=== PATIENT | female | born 1965 | race Caucasian/White ===

== ENCOUNTER 2020-07-24 13:34 | Emergency (ER) | payer SELFPAY ==
[2020-07-24 13:56] VITALS: BP 119/86; PULSE 62; PULSE 73; RESP 16; TEMP 36.7; O2SAT 97; O2SAT 98; BMI 29.9
--- NOTE | 2020-07-24 14:00 | XR_ITS ---
EXAMINATION: XR SHOULDER, RIGHT CLINICAL INFORMATION: Pain after fall COMPARISON: None TECHNIQUE: Two views of the right shoulder. FINDINGS: Comminuted, nondisplaced fracture of the humeral head/neck. Humeral head demonstrates acceptable articulation with the glenoid fossa on these 2 views. There are moderate hypertrophic changes of the acromioclavicular joint. Visualized ribs and lung parenchyma are unremarkable. XR/XR shoulder RT min 2V IMPRESSION: Comminuted, nondisplaced fracture of the humeral head/neck.
--- NOTE | 2020-07-24 14:12 | ED.EXTPRO ---
HPI - Extremity Problem General Chief complaint: Extremity Injury, Upper Stated complaint: fall, arm pain Time Seen by Provider: 07/24/20 14:00 Source: EMS Mode of arrival: EMS Limitations: no limitations History of Present Illness HPI Narrative: States she was taking her groceries out and [facility] and chief fell and hit right shoulder on the ground. Having right shoulder pain. No head neck or back pain MD Complaint: extremity pain Onset (ago): hour(s) Pain Consistency: constant Location: right Severity scale (1-10): 5 Quality: aching Radiation: none Relieving factors: immobilization Exacerbating factors: range of motion Associated symptoms: denies other symptoms Related Data Previous Rx's Medication Instructions Recorded ibuprofen 800 mg PO Q8H PRN #30 tab 07/24/20 oxycodone-acetaminophen [Percocet] 1 tab PO Q8H PRN #14 tab 07/24/20 Allergies Allergy/AdvReac Type Severity Reaction Status Date / Time No Known Allergies Allergy Unverified 06/13/20 14:39 Review of Systems Review of Systems: Constitutional: No Weight loss, No Fever, No Chills, No Night Sweats, No Fatigue, No Malaise ENT/Mouth: No Hearing loss, No Ear Pain, No Nasal Congestion, No Sinus Pain, No Hoarseness, No sore throat, No Rhinorrhea, No Swallowing Difficulty Eyes: No Eye Pain, No Swelling, No Redness, No Foreign Body, No Discharge, No Vision Changes Cardiovascular: No Chest Pain, No SOB, No Dyspnea on Exertion, No Orthopnea, No Edema, No Palpitations Respiratory: No Cough, No Sputum, No Wheezing, No Smoke Exposure, No Dyspnea Gastrointestinal: No Nausea, No Vomiting, No Diarrhea, No Constipation, No abdominal Pain, No Hematochezia, No Melena Genitourinary: no irregular bleeding, No Dysuria, No Urinary Frequency, No Hematuria, No Urinary Incontinence, No Urgency, No Flank Pain, No Urinary Flow Changes, No Hesitancy Musculoskeletal: noted in HPI+ r shoulder pain Skin: No Skin Lesions, No rash Neuro: No Weakness, No Numbness, No Paresthesias, No Loss of Consciousness, No Dizziness, No Headache Psych: No Anxiety/Panic, No Depression, No SI/HI/AH/VH, No Social Issues Heme/Lymph: No Bruising, No Bleeding,No Lymphadenopathy Endocrine: No Polyuria, No Polydipsia, No Temperature Intolerance Yes all other systems are reviewed and are negative [facility] Past Medical History Attestation statement: The following information was validated with the patient. Medical History (Updated 07/24/20 @ 15:54 by Gianni Khan NP) HTN (hypertension) Surgical History (Updated 07/24/20 @ 13:59 by Tamara Foy) H/O hand surgery Previous section Social History Social History Alcohol intake: never Smoking Status: Current every day smoker Use of substances other than those prescribed or required for medical reasons: No Advance Directives: No Advance Directives Information Provided: No Physical Exam Vital Signs: Vital Signs: Vital Signs Temp Pulse Resp BP Pulse Ox 07/24/20 13:56 98.1 F 73 16 119/86 97 Body Mass Index 29.9 reviewed Const: General: cooperative and healthy appearing; No acute distress or intoxicated appearing Nutritional Appearance: average body habitus Orientation/consciousness: patient oriented x3 HENMT: Head: Yes normal to inspection Ears: hearing grossly normal bilaterally Eyes: General: appearance normal, both eyes and all related structures Visual Neff: normal visual neff by confrontation Neck: Neck: Yes normal visual inspection and No tender Thyroid: Thyroid normal Chest: Chest palpation & inspection: normal inspection of the chest Resp: Effort & Inspection: normal respiratory effort Cardio: Jugular venous distension: no JVD GI: Inspection: Yes normal to inspection Percussion: Yes normal to percussion Auscultation: normal bowel sounds : General: Yes no CVA tenderness Back/Spine/Pelvis: Back: no CVA tenderness Skin: General skin exam: no rashes or lesions noted Neuro: General: patient oriented x3 Extrem: General: Yes normal to inspection Shoulder/upper arm images: 1. Pain with palp and movement no obvious deformities, laceration Course Course Course Narrative: AP mechanical fall resulting in comminuted, nondisplaced fracture of the humeral head/neck on right side. No other injury. Patient placed in a shoulder immobilizer case discussed with orthopedics they agree with this. Will follow up in office. Patient will be going home with pain management/return/follow-up instructions. Neurological intact. Consultations Consultation #1: Case discussed with orthopedics on-call via tiger text [employer] - recommendation shoulder mobilizer and office follow-up. 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 FINDINGS: Comminuted, nondisplaced fracture of the humeral head/neck. Humeral head demonstrates acceptable articulation with the glenoid fossa on these 2 views. There are moderate hypertrophic changes of the acromioclavicular joint. Visualized ribs and lung parenchyma are unremarkable. XR/XR shoulder RT min 2V IMPRESSION: Comminuted, nondisplaced fracture of the humeral head/neck. Dictated By:MARIELLE ABRAMS MD Signed By:<Electronically signed by MARIELLE ABRAMS MD in OV>07/24/20 1423 DD/ 1400 TD/TT: Telemarketing Fundraiser: PD Discharge Plan Discharge Clinical Impression: Fracture of humerus, Fall Patient Disposition: Home, Self-Care Instructions: Arm Fracture in Adults (ED), Fall Prevention (ED), Shoulder Immobilizer (ED) Additional Instructions: Please leave sling in place until you follow-up with orthopedics Home cares instructed Return if any concerns or symptoms otherwise call orthopedics tomorrow to follow-up the next 3-7 days Thank you Prescriptions: New ibuprofen 800 mg tablet 800 mg PO Q8H PRN (Reason: pain) Qty: 30 RF: 0 oxycodone-acetaminophen [Percocet] 5-325 mg tablet 1 tab PO Q8H PRN (Reason: pain) Qty: 14 RF: 0 Referrals: Elina Gamboa MD [Physician] - 1 week
[2020-07-24] MEDS: oxyCODONE HCl Immed Release 5 MG TABLET 10 MG PO ×2 (14:18→16:19)
--- NOTE | 2020-07-24 15:07 | PC.NURSE ---
[employer] renee and pt aware xray results, pt medicated with oxycodone as ordered, [employer] awaiting response from orthopedics re: poc
== END 2020-07-24 16:46 | disposition home or self-care (01) ==
PROVIDERS: Emergency Provider Emergency Medicine
DX: S42.354A Nondisplaced comminuted fracture of shaft of humerus, right arm, initial encounter for closed fracture (principal); M25.511 Pain in right shoulder; W01.198A Fall on same level from slipping, tripping and stumbling with subsequent striking against other object, initial encounter; Y93.01 Activity, walking, marching and hiking; Y92.009 Unspecified place in unspecified non-institutional (private) residence as the place of occurrence of the external cause; Y99.9 Unspecified external cause status; F17.200 Nicotine dependence, unspecified, uncomplicated; Z71.6 Tobacco abuse counseling
CPT/HCPCS: 73030; 99283

== ENCOUNTER 2024-03-01 12:00 | Emergency (ER) | payer MEDICAID, SELFPAY ==
--- NOTE | ~2024-03-01 | XR_ITS ---
EXAMINATION: XR LUMBOSACRAL SPINE CLINICAL INFORMATION: Left-sided low back pain radiating to the left leg COMPARISON: 04/07/2018 TECHNIQUE: 2 views of lumbar spine FINDINGS: When compared to the previous study there is mild progression of diffuse degenerative changes with narrowing of L1-L2, L4-L5. There is subchondral sclerosis and marginal spurring at the level of L2-L3. There is no spondylolysis or listhesis. Pedicles are preserved. There are 5 not ribs bearing vertebral bodies. XR/XR lumbar spine 2-3V IMPRESSION: Mild multilevel degenerative changes of lumbar spine.
[2024-03-01 12:11] VITALS: BP 193/112; PULSE 97; RESP 16; TEMP 36.6; O2SAT 98
--- NOTE | 2024-03-01 12:11 | ED_ITS ---
HPI - General Adult General Chief complaint: Extremity Problem Stated complaint: pain L side Time Seen by Provider: 03/01/24 12:35 Source: patient Mode of arrival: ambulatory Limitations: no limitations History of Present Illness ED Provider: Diana HALL HPI narrative: This is a 59-year-old female past medical history significant for hypertension presenting to the emergency department complaints of left-sided hip/buttocks pain that started on , atraumatic in nature, pain has been worsening ever since then. Patient reports she has never had hip pain in the past. Hip/buttock pain radiates down to left lower extremity. She describes it as ?shooting pain ?and rates it a greater than 10/10 on the pain scale. She has been taking Tylenol with little to no relief. She reports weight-bearing and movement makes it worse. She denies associated weakness, fevers, chills, numbness, tingling changes in urinary habits, bowel habits, chest pain, shortness of breath, abdominal pain, nausea and vomiting. No blunt trauma. Not on blood thinners. Ambulatory into the room without difficulty. NIH stroke scale 0 on arrival. Related Data Previous Rx's ?Medication ?Instructions ?Recorded ibuprofen 800 mg tablet 800 mg PO Q8H PRN pain #30 tabs 07/24/20 oxycodone-acetaminophen 5 mg-325 1 tab PO Q8H PRN pain #14 tabs 07/24/20 mg tablet (Percocet) cyclobenzaprine 10 mg tablet 10 mg PO BEDTIME PRN muscle spasm 03/01/24 #7 tabs ketorolac 10 mg tablet 10 mg PO TID PRN pain 5 days #15 03/01/24 tabs lidocaine 5 % topical patch 1 patch topical DAILY PRN pain #15 03/01/24 ea Allergies Allergy/AdvReac Type Severity Reaction Status Date / Time No Known Allergies Allergy Verified 03/01/24 12:13 Review of Systems Review of Systems: Constitutional : No Weight loss, No Fever, No Chills, ENT/Mouth : No Hearing loss, No Ear Pain, No Nasal Congestion, No Sinus Pain, No Hoarseness, No sore throat, No Rhinorrhea, No Swallowing Difficulty Cardiovascular : No Chest Pain, No SOB Respiratory : No Cough, No Dyspnea Gastrointestinal : No Nausea, No Vomiting, No Diarrhea, No abdominal Pain, No Hematochezia, No Melena Genitourinary : No Dysuria, No Urinary Frequency, No Hematuria, No Urinary Incontinence, Musculoskeletal : positive back pain Skin : No Skin Lesions, No rash Neuro : No Weakness, No Numbness, No Paresthesias, no loss of bowel or bladder incontinence, no saddle anesthesia Yes all other systems are reviewed and are negative REPLACED BY [facility] Past Medical History Attestation statement: The following information was validated with the patient. Source: old records reviewed and nursing notes reviewed Medical History HTN (hypertension) Surgical History H/O hand surgery Previous section Social History Social History Alcohol intake: never Advance Directives: No Advance Directives Information Provided: No Physical Exam ED Vital Signs: Vital Signs - 24 hr 03/01/24 12:11 03/01/24 14:22 Temperature 97.8 F 97.7 F Pulse Rate 97 68 Respiratory Rate 16 18 Blood Pressure 193/112 H 145/42 H Pulse Oximetry 98 97 Oxygen Delivery Method Room Air Room Air BMI result Body Mass Index 30.0 HTN likely due to pain Appearance: Alert.? Oriented X3.? No acute distress.? Head: Normocephalic, atraumatic, no step-offs or deformities Eyes: Pupils equal, round and reactive to light.? Neck: Normal inspection.? Neck supple.? CVS: Normal heart rate and rhythm.? Pulses normal.? Respiratory: No respiratory distress.? Breath sounds normal.? Abdomen: Soft and nontender.? Skin: Skin warm and dry.? Normal skin color.? Normal skin turgor.? Extremities: No lower extremity edema.? No calf ttp. 5/5 strength to bilateral upper and lower extremities + discomfort with palpation of left buttocks region/left lower lumbar paraspinous muscles. Patient ambulating with steady gait normal coordination. Full range of motion to hip, knee bilaterally. No saddle paresthesias. No midline pain to back Back: No midline tenderness, no C-spine tenderness, full range of motion, no CVA tenderness bilaterally Neuro: Oriented X 3.? No motor deficit.? No sensory deficit. CN 2-12 intact Course Course Course Narrative: This is a rapid medical exam performed by Lana Arauz NP: Additional HPI, ROS, PE not included below will be deferred to primary provider. Patient is a 59-year-old female presenting to the ED with complaint of left lower back pain radiating to left hip and down left leg since . Reports pain is exacerbating her anxiety. BP elevated in triage. Denies fevers, saddle anesthesia, bowel or bladder incontinence. Plan: xray Reevaluation(s) Reevaluation #1: X-ray of the lumbar spine mild multi level degenerative changes of lumbar spine. Will give Toradol, cyclobenzaprine for home as well as Lidoderm patches. I did give a 1 time dose of morphine here due to continued pain that is not completely resolved with Toradol Toradol improved pain however did not get rid of it completely. Patient is not driving home she has a ride home. Educated patient on diagnosis and treatment plan, answered all question, patient verbalizes understanding. At this time patient will be discharged home, advised to return with new or worsening symptoms. Educated on worrisome signs and symptoms and when to return. At this time I feel comfortable discharge home. Time: 14:57 Medications Administered Discontinued Medications Generic Name Dose Route Start Last Admin Trade Name Loren PRN Reason Stop Dose Admin Ketorolac Tromethamine 30 mg 03/01/24 13:03 03/01/24 13:18 Ketorolac Tromethamine 15 Mg/Ml Vial IM 03/01/24 13:04 30 mg ONCE ONE Administration Lidocaine 1 patch 03/01/24 13:03 03/01/24 13:18 Lidocaine 4 % Patch Adh..Patch TRANSDERMA 03/01/24 13:04 1 patch ONCE ONE Administration Protocol Morphine Sulfate 15 mg 03/01/24 14:22 03/01/24 14:35 Morphine Sulfate Immed Release 15 Mg Tablet PO 03/01/24 14:23 15 mg ONCE ONE Administration Medical Decision Making Medical Decision Making [facility] Narrative: 1321 59-year-old female presents with complaints of left lower back pain/buttocks pain with radiation to left lower extremity. Ambulatory into. And into department. Physical exam+ discomfort with palpation of left buttocks region/left lower lumbar paraspinous muscles. Patient ambulating with steady gait normal coordination. Full range of motion to hip, knee bilaterally. No saddle paresthesias. No midline pain to back History and physical exam concerning for lumbar radiculopathy versus sciatica versus lumbar paraspinous muscles spasms. Unlikely cauda equina, cord compression, fracture, dislocation. Other differentials include osteoarthritis versus bursitis. Unlikely septic joint Plan imaging, Toradol. Differential Diagnosis Differential Diagnoses: The differential diagnosis associated with the presentation includes History and physical exam concerning for lumbar radiculopathy versus sciatica versus lumbar paraspinous muscles spasms. Unlikely cauda equina, cord compression, fracture, dislocation. Other differentials include osteoarthritis versus bursitis. Unlikely septic joint Admission/Observation Consideration of admission/observation: Escalation of care including admission/observation considered Unlikely Lab Data Labs: No indicaiton Independent Interpretation I performed an independent interpretation of an: Plain X-Ray Radiology Impression Discussion of test interpretation with radiology: I have reviewed the radiologist's reading. External Record Review External record reviewed: Outpatient record Prescription Management I considered prescription management with: Pain Medication (Toradol.) Chronic Conditions Patient?s care impacted by: Hypertension Discharge Plan Discharge Clinical Impression: Sciatica, Acute pain of left hip, Degenerative disc disease, lumbar Patient Disposition: Home, Self-Care Instructions: Sciatica (ED), Arthralgia (ED), Back Pain (ED), Hip Pain (ED) Additional Instructions: Take your medications as prescribed. If you were prescribed antibiotics today, it is important that you take your medication to their entirety, do not skip any doses, do not finish them early. Follow-up with your primary care provider this week. Return to the emergency department with new or worsening symptoms. Such as fevers, chills, chest pain, shortness of breath, nausea, vomiting, dizziness, headache, vision changes, lethargy In case of emergency call 911 Toradol has been sent to your pharmacy, you tolerated this well in the department. Please take this as prescribed do not take this with ibuprofen, or other NSAIDs, do not mix this with alcohol. Side effects of this medication including increased risk for bleeding and possible kidney injury. Cyclobenzaprine is a muscle relaxer it is strong and can make you drowsy. Do not take with sedatives or any other muscle relaxers or alcohol. Do not drive or operate machinery while taking this. Do not share this medication with anyone. XR/XR lumbar spine 2-3V IMPRESSION: Mild multilevel degenerative changes of lumbar spine. Prescriptions: New ketorolac 10 mg tablet 10 mg PO TID PRN (Reason: pain) 5 Days Qty: 15 0RF lidocaine 5 % adhesive patch,medicated 1 patch topical DAILY PRN (Reason: pain) Qty: 15 0RF Rx Instructions: leave on most painful area for up to 12 hrs cyclobenzaprine 10 mg tablet 10 mg PO BEDTIME PRN (Reason: muscle spasm) Qty: 7 0RF No Action ibuprofen 800 mg tablet 800 mg PO Q8H PRN (Reason: pain) Qty: 30 0RF oxycodone-acetaminophen [Percocet] 5-325 mg tablet 1 tab PO Q8H PRN (Reason: pain) Qty: 14 0RF Referrals: [facility] [Provider Group] - 1 week Physician,Unknown J [Primary Care Provider] - 2 days Stand Alone Forms: Work/School Release Print Language: Guinean
[2024-03-01] MEDS: Lidocaine 4 % Patch ADH..PATCH 1 PATCH TRANSDERMA (13:18)
[2024-03-01] MEDS: Ketorolac Tromethamine 15 MG/ML VIAL 30 MG IM (13:18)
[2024-03-01 14:22] VITALS: BP 145/42; PULSE 68; RESP 18; TEMP 36.5; O2SAT 97
[2024-03-01] MEDS: Morphine Sulfate Immed Release 15 MG TABLET PO (14:35)
[2024-03-01 15:08] VITALS: BP 145/42; PULSE 78; RESP 16; TEMP 36.5; O2SAT 96
== END 2024-03-01 15:10 | disposition home or self-care (01) ==
PROVIDERS: Emergency Provider Student in an Organized Health Care Education/Training Program
DX: M54.42 Lumbago with sciatica, left side (principal); M51.36 Other intervertebral disc degeneration, lumbar region; M25.552 Pain in left hip; I10 Essential (primary) hypertension
CPT/HCPCS: 72100; 96372; 99284; J1885